=== PATIENT | male | born 1960 | race Caucasian/White ===

== ENCOUNTER 2020-02-09 12:02 | Emergency (ER) | payer OTHER, SELFPAY ==
--- NOTE | ~2020-02-09 | CT_ITS ---
EXAMINATION: CT brain wo con DATE: 02/09/2020 14:28 INDICATION: Headache. TECHNIQUE: Computed tomography (CT) of the head was performed without intravenous contrast. The mA wa s adjusted according to patient size. Iterative reconstruction technique was employed. The dose-lengt h product was 681.00 mGy-cm. COMPARISON: None FINDINGS: There is no intracranial hemorrhage, acute infarction, or abnormal intracranial mass lesion . The ventricles are normal in size. There is mild mucosal thickening in the paranasal sinuses. The o rbits are normal. The mastoid air cells are normal. IMPRESSION: 1. Normal brain. Reviewed, dictated and finalized at location A. IMPRESSION: 1. Normal brain.
--- NOTE | ~2020-02-09 | XR_ITS ---
EXAMINATION: XR chest 1V portable INDICATION: Cough and fever TECHNIQUE: Portable AP chest at 1343 hours COMPARISON: None available FINDINGS: The lungs are free of acute opacities. There is no pleural effusion or pneumothorax. The ca rdiomediastinal silhouette is normal. Suture anchors are noted in the shoulders. IMPRESSION: 1. No acute cardiopulmonary abnormality. Reviewed, dictated and finalized at location A.
[2020-02-09 12:05] VITALS: BP 146/73; PULSE 96; RESP 18; TEMP 38.1; O2SAT 98
--- NOTE | 2020-02-09 13:19 | ED.HA ---
HPI - Headache General Chief Complaint: Headache <MARTHA Ma Last Filed: 02/09/20 16:32> Stated Complaint: fever/headache <MARTHA Ma Last Filed: 02/09/20 16:32> Time Seen by Provider: 02/09/20 12:39 <MARTHA Ma Last Filed: 02/09/20 16:32> Source: patient <MARTHA Ma Last Filed: 02/09/20 16:32> Mode of arrival: ambulatory <MARTHA Ma Last Filed: 02/09/20 16:32> Limitations: no limitations <MARTHA Ma Last Filed: 02/09/20 16:32> History of Present Illness HPI Narrative: This is a 59 year old male that presents to the ER for headache x 2 days. Reports fever, headache, congestion, rhinorrhea and cough. Reports his oxygen saturation has also been low at times. No known sick contacts. 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 Denies chest pain, shortness of breath, abdominal pain, vomiting, numbness or weakness. <MARTHA Ma Last Filed: 02/09/20 16:32> Related Data Home Medications: Home Medications Medication Instructions Recorded Confirmed omeprazole 20 mg PO DAILY 02/09/20 sertraline 50 mg PO DAILY 02/09/20 <MARTHA Ma Last Filed: 02/09/20 16:32> Allergies/Adverse Reactions: Allergies Allergy/AdvReac Type Severity Reaction Status Date / Time No Known Allergies Allergy Unverified 02/09/20 12:08 <MARTHA Ma Last Filed: 02/09/20 16:32> Review of Systems Review of Systems: Narrative: CONSTITUTIONAL: Reports fever EYES: Denies visual changes ENT: Reports rhinorrhea, congestion. Denies sore throat, or otalgia. CARDIOVASCULAR: Denies chest pain RESPIRATORY: Denies dyspnea. GASTROINTESTINAL: Denies abdominal pain, nausea, vomiting GENITOURINARY: Denies dysuria or hematuria. SKIN: Denies rash NEUROLOGIC: Reports headache. Denies numbness, or weakness. <Magali Floyd PA-C - Last Filed: 02/09/20 16:32> All systems reviewed & are unremarkable except as noted in HPI and below <Magali Floyd PA-C - Last Filed: 02/09/20 16:32> PMFSH Past Medical History Medical History: Medical History (Updated 02/09/20 @ 16:31 by Magali Floyd PA-C) History of gastroesophageal reflux (GERD) <Magali Floyd PA-C - Last Filed: 02/09/20 16:32> Social History Social History: Social History (Updated 02/09/20 @ 13:24 by Magali Floyd PA-C) Smoking status: Never smoker Gender identity (if verbalized by the patient): Male <Magali Floyd PA-C - Last Filed: 02/09/20 16:32> Exam Narrative: Exam Narrative: GENERAL: Well-appearing, well-nourished, and in no acute distress. HEAD: Normocephalic, atraumatic. EYES: PERRLA and EOMI. ENT: Nares clear, no rhinorrhea or epistaxis. Mucous membranes moist. Oropharynx without tonsillar hypertrophy exudate or other lesions. Bilateral TMs pearly barry non-bulging NECK: Supple. No adenopathy or masses. Normal ROM CHEST: Clear to auscultation. No respiratory distress. No wheezes rales or rhonchi HEART: Regular rate and rhythm. No murmur heard. Normal peripheral pulses. EXTREMITIES: Normal range of motion. No edema. Strength equal in bilateral upper and lower extremities. Normal heel to horn SKIN: Warm, dry, no rash. NEURO: No focal deficits. Alert and oriented x3. Cranial nerves II through XII grossly intact. Normal [id number]. Negative Kernig and Brudzinski PSYCH: Normal mood and affect <Magali Floyd PA-C - Last Filed: 02/09/20 16:32> Course Consultations Consultation #1: Spoke with patient's primary doctor network operations lead, Dr. Prasad who will follow-up in clinic <Magali Floyd PA-C - Last Filed: 02/09/20 16:32> Date: 02/09/20 <Magali Floyd PA-C - Last Filed: 02/09/20 16:32> Time: 16:29 <Magali Floyd PA-C - Last Filed: 02/09/20 16:32> Vital Signs Vital signs: Vital Signs Temperature 100.6 F H 02/09/20 12:05 Pulse Rate 96 02/09/20 12:05
[2020-02-09] MEDS: METOCLOPRAMIDE HCL INJ 10 MG/2 ML VIAL IV PUSH (13:30)
[2020-02-09] MEDS: SODIUM CHLORIDE 0.9% IV 1,000 ML 999 ML IV CONT (13:30)
[2020-02-09] MEDS: KETOROLAC 30 MG/ML VIAL (*BKC) IV PUSH (13:30)
[2020-02-09 13:32] LABS: Basophils Percent Auto 0.4 % (0.2-1.2); Eosinophils Percent Auto 0.2 % (0-4.4); Hematocrit 46.3 % (42.0-52.0); Hemoglobin 15.6 g/dL (14.0-18.0); Immature Granulocyte Absolute 0.03 K/mm3 (0.00-0.031); Immature Granulocyte Percent A 0.4 % (0-0.5); Lymphocytes Absolute Auto 1.42 K/mm3 (0.9-3.2); Lymphocytes Percent Auto 17.1 % (18.3-44.2); Mean Corpuscular HGB Conc 33.7 g/dl (32-36); Mean Corpuscular Hemoglobin 29.1 pg (26-34); Mean Corpuscular Volume 86.4 fl (80-100); Mean Platelet Volume 10.3 fl (7.4-10.4); Monocytes Absolute Auto 0.7 K/mm3 (0.1-0.6); Monocytes Percent Auto 8.2 % (2.6-8.5); Neutrophils Absolute Auto 6.1 K/mm3 (1.3-6.7); Neutrophils Percent Auto 73.7 % (45.5-73.1); Platelet Count Result 205 k/mm3 (150-375); Red Blood Count 5.36 M/mm3 (4.6-6.20); Red Cell Distribution Width 12.1 % (11.5-14.5); White Blood Count 8.3 K/mm3 (4.5-10.0)
[2020-02-09 13:44] LABS: Lactic Acid Reflex 1.4 mmol/L (0.7-2.1)
[2020-02-09 13:47] LABS: Alanine Aminotransferase 16 U/L (4-50); Albumin Level 4.6 g/dL (3.5-5.1); Alkaline Phosphatase 72 U/L (38-126); Aspartate Amino Transferase 27 U/L (17-59); Bilirubin,Total 0.6 mg/dL (0.2-1.3); Blood Urea Nitrogen 12 mg/dL (9-20); CRP 0.6 mg/dL (<1.0); Carbon Dioxide 32 mmol/L (22-30); Chloride 100 mmol/L (98-107); Estimated CRCL calculation 75 ml/min; Estimated Glomerular Filt Rate > 60; Glucose 130 mg/dL (75-110); Lactate Dehydrogenase 313 U/L (313-618); Potassium 4.3 mmol/L (3.4-5.0); Sodium 137 mmol/L (137-145)
[2020-02-09 16:24] VITALS: BP 139/91; PULSE 77; RESP 16; O2SAT 99
[2020-02-09 16:55] VITALS: BP 133/85; PULSE 78; RESP 18; TEMP 37.1; O2SAT 96
[2020-02-10 14:46] LABS: SARS-CoV-2 RNA PCR Negative
== END 2020-02-09 16:57 | disposition home or self-care (01) ==
PROVIDERS: Physician Assistant; Emergency Provider Emergency Medicine
DX: R51 Headache (principal); Z20.828 Contact with and (suspected) exposure to other viral communicable diseases; K21.9 Gastro-esophageal reflux disease without esophagitis
CPT/HCPCS: 36415; 70450; 71045; 80053; 82728; 83605; 83615; 85025; 86140; 87635; 87804; 96361; 96374; 96375; 99284; C9803; J0131; J1200; J1885; J2765; J7030; U0003

== ENCOUNTER 2021-02-25 16:04 | Outpatient (CLI) | payer OTHER, SELFPAY ==
--- NOTE | ~2021-02-25 | XR_ITS ---
XR hand BI arthritis min 3V 02/25/2021 16:30 Indication: Arthralgias Procedure: 3 views of each hand Comparison: No prior studies for comparison. Findings: There are degenerative changes of the interphalangeal joints as well as the first MCP joint s and the first carpometacarpal joints bilaterally. No erosive changes. No fracture or traumatic sara lignment. Normal mineralization. No foreign bodies. No focal soft tissue abnormality. Impression: 1: Mild polyarticular osteoarthritis. Reviewed, dictated and finalized at location A. Impression: 1: Mild polyarticular osteoarthritis.
== END 2021-02-25 16:05 | disposition home or self-care (01) ==
PROVIDERS: Visit Provider Physician Assistant
DX: M19.042 Primary osteoarthritis, left hand (principal); M19.041 Primary osteoarthritis, right hand; M18.0 Bilateral primary osteoarthritis of first carpometacarpal joints
CPT/HCPCS: 73130

== ENCOUNTER → 2022-05-26 14:34 | Outpatient (CLI) | payer OTHER, SELFPAY ==
--- NOTE | ~2022-05-26 | DEXA_ITS ---
Bone Density Report Name: DAMARIS CORTEZ Age: 61 Sex: Male Ethnicity: White Date of : 1960 Indication: rheumatoid arthritis; Referring Provider: Audrey, Jarad Alvarez Study: Bone densitometry was performed. Exam Date: May 26, 2022 Accession number: [id number] Bone Density: Region BMD T-score Z-score Classification AP Spine (L1-L4) 1.099 0.1 0.8 Normal Femoral Neck (Left) 0.780 -1.1 -0.1 Osteopenia Total Hip (Left) 0.989 -0.3 0.2 Normal Femoral Neck (Right) 0.805 -0.9 0.1 Normal Total Hip (Right) 1.003 -0.2 0.3 Normal Total Hip Mean 0.996 -0.3 0.3 Normal World Health Organization criteria for BMD impression classify patients as: Normal (T-score at or above -1.0), Osteopenia (T-score between -1.0 and -2.5), or Osteoporosis (T-score at or below -2.5). 10-year Fracture Risk(1): Major Osteoporotic Fracture 6.7% Hip Fracture 0.7% Reported Risk Factors: [place] (), Neck BMD=0.780, BMI=26.3, rheumatoid arthritis (1) FRAX(R) Version 3.08. Fracture probability calculated for an untreated patient. Fracture probability may be lower if the patient has received treatment. Clinical Information Provided by Patient: Has rheumatoid arthritis Has used the following medications: Vitamin D, Calcium, MTV Patient maximum height was 73.0 No regular weight bearing exercise Drinks caffeinated beverages Impression: The patient has low bone mass, based on the Left Femoral Neck T-score. The patient has an estimated ten-year risk of hip fracture of 0.7% and an estimated ten-year risk of major fracture of 6.7%, based on the WHO FRAX algorithm. Discussion: BONE DENSITY IS LOW AT ONE OR MORE SKELETAL SITES. This patient's lowest T-score is low at one or more skeletal sites. It meets the World Health Organization's (WHO) criteria for ?low bone mass? (T-score between -1.0 and -2.5). The patient's 10-year risk of fracture as calculated by FRAX is less than the threshold where pharmacological therapy is recommended by the National Osteoporosis Foundation (NOF). However, all treatment decisions require clinical judgment and consideration of individual patient factors, including patient preferences, comorbidities, previous drug use, risk factors not captured in the FRAX model (e.g., frailty, falls, vitamin D deficiency, increased bone turnover, interval significant decline in bone density) and possible under or overestimation of fracture risk by FRAX. The patient should follow a healthful lifestyle (good nutrition with adequate calcium and vitamin D, and appropriate weight-bearing exercise). Follow-Up: Consider repeating this study in 2 to 3 years to reassess this patient's status, or sooner if there is some new clinical indication. Reported by: [facility] on 05/26/2022 3:16:00 PM.
== END ==
PROVIDERS: Visit Provider Physician Assistant
DX: M85.852 Other specified disorders of bone density and structure, left thigh (principal)
CPT/HCPCS: 77080